=== PATIENT | male | born 1975 | race Caucasian/White ===

== ENCOUNTER 2017-03-28 09:31 | Emergency (ER) | payer BC ==
--- NOTE | 2017-03-28 09:47 | EDM.PDOC ---
ED HPI GENERAL MEDICAL PROBLEM - General Chief Complaint: Laceration Stated Complaint: HEAD INJURY Time Seen by Provider: 03/28/17 09:35 Source of Information: Reports: Patient, RN, RN Notes Reviewed History Limitations: Reports: No Limitations - History of Present Illness INITIAL COMMENTS - FREE TEXT/NARRATIVE: Patient presents to the ED at [facility] after he fell in the shower last evening around 11:30pm and sustained a laceration above the left eyebrow. Patient denies any LOC. He states he remembers the entire incident. No previous head injury or trauma. No previous head surgeries. No visual complaints. No trouble with ambulation. Denies any headache. Onset Date: 03/27/17 Onset Time: 23:30 - Related Data Allergies Allergy/AdvReac Type Severity Reaction Status Date / Time venom-honey bee Allergy Hives Verified 03/28/17 09:49 [bee venom (honey bee)] Home Meds: Home Meds Metoprolol Succinate [Metoprolol Succinate] 25 mg DAILY 03/28/17 [History] Simvastatin [Simvastatin] 10 mg DAILY 03/28/17 [History] metFORMIN HCl [Metformin HCl] 500 mg BID 03/28/17 [History] ED ROS GENERAL - Review of Systems Review Of Systems: See Below Constitutional: Denies: Fever, Chills, Weakness HEENT: Denies: Vision Change Respiratory: Denies: Shortness of Breath, Cough Cardiovascular: Denies: Chest Pain, Palpitations Musculoskeletal: Denies: Neck Pain Skin: Reports: Wound (cut above left eyebrow) Neurological: Reports: No Symptoms. Denies: Dizziness, Headache, Numbness, Paresthesia, Tingling ED EXAM, SKIN/RASH Exam: See Below Exam Limited By: No Limitations General Appearance: Alert, No Apparent Distress Eye Exam: Bilateral Eye: EOMI, Normal Inspection, PERRL Head: Atraumatic, Normocephalic Neck: Supple, Non-Tender, Full Range of Motion Respiratory/Chest: No Respiratory Distress, Lungs Clear, Normal Breath Sounds Cardiovascular: Regular Rate, Rhythm Neurological: Alert, Oriented, Normal Cognition Skin: Warm, Dry, Normal Color, No Rash, Wound/Incision (3.2cm horizontal laceration above the left eyebrow; low grade venous ooze; wound is clean) Location, Skin: Face ED SKIN PROCEDURES - Laceration/Wound Repair Left Brow Lac/Wound length In cm: 3.2 Appearance: Subcutaneous, Linear, Clean Local Anesthesia - Lidocaine (Xylocaine): Other (none) Skin Prep: Chlorhexidine (Hibiciens), Saline Exploration/Debridement/Repair: Wound Explored, in a Bloodless Field, No Foreign Material Found, Wound Margins Revised Closed with: Dermabond Sterile Dressing Applied: Nurse Tetanus Status Addressed: Yes Complications: No Departure - Departure Time of Disposition: 09:56 Disposition: Home, Self-Care 01 Condition: Good Clinical Impression: Laceration of forehead without complication Qualifiers: Encounter type: initial encounter Qualified Code(s): S01.81XA - Laceration without foreign body of other part of head, initial encounter - Discharge Information Instructions: Stitches, Yogi, or Adhesive Wound Closure, [id number], Laceration Care, Adult, [id number] Referrals: Marisa Dave MD [Primary Care Provider] - Forms: ED Department Discharge Additional Instructions: 1. Stay well hydrated and rest 2. Keep bandaid on for 24 hours, then remove 3. May shower/bather as usual 4. Glue will dissolved on its own as the wound heals; do not try and remove 5. See your Primary as symptoms warrant - Problem List Review Problem List Initiated/Reviewed/Updated: Yes
== END 2017-03-28 10:10 | disposition home or self-care (01) ==
LOC: VM.ED 09:31
CPT/HCPCS: 12013; 99283

== ENCOUNTER 2021-06-24 17:51 | Emergency (ER) | payer BC ==
[2021-06-24] MEDS: Diphtheria,Pertussis(Acell),Tetanus Vaccine 0.5 ML Syringe IM ONE (18:28)
--- NOTE | 2021-06-24 18:30 | EDM.PDOC ---
ED HPI GENERAL MEDICAL PROBLEM - General Time Seen by Provider: 06/24/21 18:26 Source of Information: Reports: Patient - History of Present Illness INITIAL COMMENTS - FREE TEXT/NARRATIVE: Tj is a 46 y/o male who comes to the ER after he cut the end of his left thumb with a kitchen knife while cutting an onion. He cannot get it to stop bleeding. - Related Data Allergies Allergy/AdvReac Type Severity Reaction Status Date / Time venom-honey bee Allergy Hives Verified 03/28/17 09:49 [bee venom (honey bee)] Home Meds: Home Meds Metoprolol Succinate 25 mg DAILY 03/28/17 [History] Simvastatin 10 mg DAILY 03/28/17 [History] metFORMIN HCl [Metformin HCl] 500 mg BID 03/28/17 [History] Past Medical History Cardiovascular History: Reports: High Cholesterol, Hypertension Endocrine/Metabolic History: Reports: Diabetes, Type II - Past Surgical History GI Surgical History: Reports: Appendectomy Review of Systems - Review of Systems Review Of Systems: See Below Constitutional: Reports: No Symptoms Eyes: Reports: No Symptoms Ears: Reports: No Symptoms Nose: Reports: No Symptoms Mouth/Throat: Reports: No Symptoms Respiratory: Reports: No Symptoms Cardiovascular: Reports: No Symptoms GI/Abdominal: Reports: No Symptoms Genitourinary: Reports: No Symptoms Musculoskeletal: Reports: No Symptoms Skin: Reports: Wound (Thumb laceration) Neurological: Reports: No Symptoms Psychiatric: Reports: No Symptoms ED EXAM, GENERAL - Physical Exam Exam: See Below Exam Limited By: No Limitations General Appearance: Alert, WD/WN, No Apparent Distress (Adult male, holding pressure to left thumb.) Ears: Hearing Grossly Normal Nose: Normal Inspection Throat/Mouth: Normal Voice Head: Atraumatic, Normocephalic Respiratory/Chest: No Respiratory Distress GI/Abdominal: Soft (Male) Exam: Deferred Rectal (Males) Exam: Deferred Extremities: Normal Range of Motion, Other (Note avulsion laceratio to tip of left thumb, oozing blood.) Neurological: Alert, Oriented, CN II-XII Intact Psychiatric: Normal Affect Skin Exam: Warm, Dry, Intact, Normal Color Course - Vital Signs Text/Narrative:: 1824 The patient was seen by the SE[employer] MANAGER. The avulsion type laceration was not repairable. The wound was dressed with Surgicel and gauze. His Tdap was updated. 183 Written instructions were given and he left the ER in stable condition. - Orders/Labs/Meds Orders: Active Orders 24 hr Category Date Time Status Vaccine to be Administered/Admin Charge [RC] ASDIRECTED Care 06/24/21 18:14 Active Meds: Medications Discontinued Medications Generic Name Dose Route Start Last Admin Trade Name Chela PRN Reason Stop Dose Admin Diphtheria/Tetanus/Acell Pertussis 0.5 ml 06/24/21 18:14 06/24/21 18:28 Diphtheria,Pertussis(Acell),Tetanus Vaccine 0.5 Ml Syringe IM 06/24/21 18:15 0.5 ml .ONCE ONE Administration Departure - Departure Time of Disposition: 18:26 Disposition: Home, Self-Care 01 Condition: Good Clinical Impression: Need for Tdap vaccination Laceration of left thumb Qualifiers: Encounter type: initial encounter Damage to nail status: without damage Foreign body presence: without foreign body Qualified Code(s): S61.012A - Laceration without foreign body of left thumb without damage to nail, initial encounter - Discharge Information Instructions: VIS, Tetanus, Diphtheria (Td); Tetanus, Diphtheria, Pertussis (Tdap) - CDC Referrals: Marisa Dave MD [Primary Care Provider] - Additional Instructions: -Keep the dressing intact for 24 hours. -You may redress as needed and you may use antibiotic ointment and a bandaid after the fist 24 hours. -Watch for infection. -Your Tetanus immunization was updated today -Follow up with your PCP as needed - Problem List & Annotations (1) Laceration of left thumb SNOMED Code(s): 07514669817688183 Code(s): S61.012A - LACERATION W/O FB OF LEFT THUMB W/O DAMAGE TO NAIL, INIT Status: Acute Current Visit: Yes Annotation/Comment:: Avulsion type injury not repairable, dressing with Surgicel applied Qualifiers: Encounter type: initial encounter Damage to nail status: without damage Foreign body presence: without foreign body Qualified Code(s): S61.012A - Laceration without foreign body of left thumb without damage to nail, initial encounter (2) Need for Tdap vaccination SNOMED Code(s): 730076877, [id number] Code(s): Z23 - ENCOUNTER FOR IMMUNIZATION Status: Acute Current Visit: Y es Annotation/Comment:: Tdap given tonight in ER - Problem List Review Problem List Initiated/Reviewed/Updated: Yes - My Orders Last 24 Hours: My Active Orders 06/24/21 18:14 Vaccine to be Administered/Admin Charge [RC] ASDIRECTED - Assessment/Plan Last 24 Hours: My Active Orders 06/24/21 18:14 Vaccine to be Administered/Admin Charge [RC] ASDIRECTED Plan: See above
[2021-06-24 18:40] VITALS: PULSE 113
== END 2021-06-24 18:35 | disposition home or self-care (01) ==
LOC: VM.ED 17:51
DX: S61.012A Laceration without foreign body of left thumb without damage to nail, initial encounter (principal); I10 Essential (primary) hypertension; E78.00 Pure hypercholesterolemia, unspecified; E11.9 Type 2 diabetes mellitus without complications; Z79.84 Long term (current) use of oral hypoglycemic drugs; Z23 Encounter for immunization; Z79.899 Other long term (current) drug therapy; Z91.030 Bee allergy status; W26.0XXA Contact with knife, initial encounter
CPT/HCPCS: 90471; 90715; 99283

== ENCOUNTER 2022-03-21 06:25 | Day surgery (SDC) | payer BC ==
[~2022-03-21 06:25] MED LIST: Lactated Ringers 1,000 ML IV SCH
[2022-03-21] MEDS: Lactated Ringers 1,000 ML IV SCH (06:42)
[2022-03-21] MEDS ORDERED: fentaNYL 100 MCG/2 ML SDV ONE (07:48)
[2022-03-21] MEDS ORDERED: Propofol 200 MG/20 ML SDV ONE (07:48)
[2022-03-21] MEDS ORDERED: Midazolam 1 MG/ML 2 ML SDV ONE (07:59)
[2022-03-21 08:44] VITALS: BP 142/91; PULSE 88
== END 2022-03-21 09:15 | disposition home or self-care (01) ==
LOC: VM.SDS 06:25
PROVIDERS: ATTEND Student in an Organized Health Care Education/Training Program
DX: Z12.11 Encounter for screening for malignant neoplasm of colon (principal); D12.0 Benign neoplasm of cecum; D12.2 Benign neoplasm of ascending colon; D12.3 Benign neoplasm of transverse colon; D12.5 Benign neoplasm of sigmoid colon; I10 Essential (primary) hypertension; E11.9 Type 2 diabetes mellitus without complications; E66.9 Obesity, unspecified; E78.00 Pure hypercholesterolemia, unspecified; H69.82 Other specified disorders of Eustachian tube, left ear; J30.9 Allergic rhinitis, unspecified; J45.909 Unspecified asthma, uncomplicated; Z87.891 Personal history of nicotine dependence; Z68.35 Body mass index [BMI] 35.0-35.9, adult; Z98.890 Other specified postprocedural states; Z79.899 Other long term (current) drug therapy; Z79.84 Long term (current) use of oral hypoglycemic drugs; Z91.030 Bee allergy status; Z91.048 Other nonmedicinal substance allergy status
CPT/HCPCS: 00811; 82947; J2250; J2704; J3010; J7120

== ENCOUNTER 2022-08-15 03:05 | Emergency (ER) | payer BC ==
[2022-08-15] MEDS ORDERED: hydrOXYzine HCl 25 MG Tab PO ONE (03:17)
[2022-08-15] MEDS ORDERED: cloNIDine 0.1 MG Tab PO ONE (03:17)
[2022-08-15 03:34] VITALS: PULSE 123
[2022-08-15 05:04] VITALS: BP 177/99
== END 2022-08-15 04:15 | disposition home or self-care (01) ==
LOC: VM.ED 03:05
DX: R00.0 Tachycardia, unspecified (principal); I11.9 Hypertensive heart disease without heart failure; E11.9 Type 2 diabetes mellitus without complications; T50.905A Adverse effect of unspecified drugs, medicaments and biological substances, initial encounter; E66.9 Obesity, unspecified; Z68.36 Body mass index [BMI] 36.0-36.9, adult; Z91.030 Bee allergy status; Z91.048 Other nonmedicinal substance allergy status; Z79.899 Other long term (current) drug therapy; Z79.84 Long term (current) use of oral hypoglycemic drugs
CPT/HCPCS: 93005; 93010; 99284; A9270-GY

== ENCOUNTER 2022-08-19 22:32 | Emergency (ER) | payer BC ==
[2022-08-19] MEDS: Zolpidem 5 MG Tab PO ONE (23:00)
[2022-08-19 23:48] VITALS: BP 173/113; PULSE 95
== END 2022-08-19 23:14 | disposition home or self-care (01) ==
LOC: SUPCPDRO 22:32 → VM.ED 22:32
DX: F51.02 Adjustment insomnia (principal); E78.00 Pure hypercholesterolemia, unspecified; I10 Essential (primary) hypertension; E11.9 Type 2 diabetes mellitus without complications; Z91.030 Bee allergy status; Z91.048 Other nonmedicinal substance allergy status; Z79.899 Other long term (current) drug therapy
CPT/HCPCS: 99283; 99284; A9270-GY

== ENCOUNTER 2023-02-01 18:21 | Emergency (ER) | payer BC ==
[2023-02-01] MEDS ORDERED: Lidocaine 2% 10 ML Amp INJECT ONE (18:33)
[2023-02-01 18:35] VITALS: BP 121/70; PULSE 90
== END 2023-02-01 20:45 | disposition home or self-care (01) ==
LOC: VM.ED 18:21
DX: S91.114A Laceration without foreign body of right lesser toe(s) without damage to nail, initial encounter (principal); E78.00 Pure hypercholesterolemia, unspecified; I10 Essential (primary) hypertension; E11.9 Type 2 diabetes mellitus without complications; E66.9 Obesity, unspecified; Z68.30 Body mass index [BMI] 30.0-30.9, adult; Z79.84 Long term (current) use of oral hypoglycemic drugs; Z91.030 Bee allergy status; Z91.048 Other nonmedicinal substance allergy status; Z79.899 Other long term (current) drug therapy; W26.8XXA Contact with other sharp object(s), not elsewhere classified, initial encounter
CPT/HCPCS: 12002; 99283; J3490